=== PATIENT | female | born 1980 | race Caucasian/White ===

== ENCOUNTER 2016-05-11 15:56 | Emergency (ER) | payer OTHER ==
[2016-05-11 18:53] LABS: HEMOGLOBIN 13.1 gm/dl (12.3-15.3); RED BLOOD COUNT 4.39 M/UL (4.00-5.10); WHITE BLOOD COUNT 9.3 K/UL (4.5-11.0)
[2016-05-11 19:15] LABS: BUN/CREATININE RATIO 14 (0-10)
== END 2016-05-12 00:43 | disposition home or self-care (01) ==
LOC: ER1 15:56
PROVIDERS: Emergency Medicine
DX: K42.9 Umbilical hernia without obstruction or gangrene (principal); E11.9 Type 2 diabetes mellitus without complications; I10 Essential (primary) hypertension; Z88.8 Allergy status to other drugs, medicaments and biological substances; Z79.84 Long term (current) use of oral hypoglycemic drugs; Z79.899 Other long term (current) drug therapy
CPT/HCPCS: 36415; 74022; 80053; 81001; 83690; 84703; 85025; 87086; 96361; 96374; 99284; J2405; J7050; Q9962

== ENCOUNTER 2020-05-22 01:45 | Emergency (ER) | payer OTHER ==
[~2020-05-22 01:45] MED LIST: ALLEGRA ALLERGY60 MG PO; CATAPRES0.2 MG PO; DIABETA 5 MG TAB5 MG PO; DIFLUCAN150 MG PO; FLONASE 0.05% N16 GM; HYDROCHLOROTHIA25 MG PO; LOPRESSOR50 MG PO; PREDNISONE 50 M50 MG PO; SINGULAIR10 MG PO; ZITHROMAX250 MG PO
[2020-05-22 02:03] LABS: HEMOGLOBIN 14.5 gm/dl (12.3-15.3); RED BLOOD COUNT 4.77 M/UL (4.00-5.10); WHITE BLOOD COUNT 10.5 K/UL (4.5-11.0)
[2020-05-22 02:35] LABS: BUN/CREATININE RATIO 14 (0-10)
== END 2020-05-22 05:37 | disposition home or self-care (01) ==
LOC: ER1 01:45
PROVIDERS: Emergency Medicine
DX: R07.9 Chest pain, unspecified (principal); E11.65 Type 2 diabetes mellitus with hyperglycemia; R20.2 Paresthesia of skin; I10 Essential (primary) hypertension; E78.5 Hyperlipidemia, unspecified; Z79.84 Long term (current) use of oral hypoglycemic drugs; Z88.8 Allergy status to other drugs, medicaments and biological substances
CPT/HCPCS: 70450; 71045; 80053; 82550; 82553; 83874; 83880; 84484; 85025; 85379; 85610; 85730; 93005; 99285; Q9967

== ENCOUNTER 2021-01-03 13:14 | Emergency (ER) | payer OTHER ==
[~2021-01-03] VITALS: Ht 172.7 cm; Wt 105.7 kg
== END 2021-01-03 16:00 | disposition home or self-care (01) ==
LOC: ER1 13:14
DX: U07.1 COVID-19 (principal); I10 Essential (primary) hypertension; E11.9 Type 2 diabetes mellitus without complications; Z88.8 Allergy status to other drugs, medicaments and biological substances
CPT/HCPCS: 99283; M0243

== ENCOUNTER 2021-10-17 13:04 | Emergency (ER) | payer OTHER ==
[2021-10-17] MEDS ORDERED: TRIAMCINOLONE A15 GM TP (13:36)
== END 2021-10-17 14:25 | disposition home or self-care (01) ==
LOC: ER1 13:04
DX: R21 Rash and other nonspecific skin eruption (principal); E11.9 Type 2 diabetes mellitus without complications; Z79.84 Long term (current) use of oral hypoglycemic drugs
CPT/HCPCS: 99282